=== PATIENT | female | born 1970 | race African-American/Black ===

== ENCOUNTER 2023-05-05 09:49 | Emergency (ER) | payer SELFPAY ==
[2023-05-05 09:57] VITALS: BMI 24.9
[2023-05-05] MEDS ORDERED: SODIUM CHLORIDE 1,000 ML IV STA (10:46)
[2023-05-05] MEDS ORDERED: ACETAMINOPHEN 1000 MG/100 ML BAG IVPB ONE (10:46)
[2023-05-05] MEDS ORDERED: ONDANSETRON 4 MG/2 ML VIAL IVPUSH ONE (10:46)
[2023-05-05] MEDS ORDERED: ACETAMINOPHEN INJECTION 100 ML IVPB ONE (10:53)
[2023-05-05] MEDS ORDERED: ONDANSETRON 4 MG/2 ML VIAL ONE (10:53)
[2023-05-05 11:28] LABS: URINE APPEARANCE CLEAR; URINE BILIRUBIN NEGATIVE (NEGATIVE); URINE COLOR YELLOW; URINE GLUCOSE (UA) NEGATIVE (NEGATIVE); URINE KETONE NEGATIVE (NEGATIVE); URINE LEUK ESTERASE NEGATIVE (NEGATIVE); URINE NITRITE NEGATIVE (NEGATIVE); URINE PROTEIN NEGATIVE (NEGATIVE); URINE UROBILINOGEN 0.2 mg/dL (0.2-1.0)
[2023-05-05 11:31] LABS: BASO % 0.6 % (0-2.0); EOS % 0.1 % (0-4.5); HEMATOCRIT 37.9 % (32.4-45.2); HEMOGLOBIN 12.3 GM/dL (10.7-15.3); LYMPH % 14.1 % (8-40); MCH 26.7 pg (25.7-33.7); MCHC 32.3 g/dl (32.0-36.0); MEAN CELL VOLUME 82.6 fl (80-96); MEAN PLT VOLUME 8.8 fl (7.5-11.1); MONO % 2.4 % (3.8-10.2); NEUT % 82.8 % (42.8-82.8); PLATELET COUNT 243 10^3/uL (134-434); RBC 4.59 M/mm3 (3.60-5.2); WHITE BLOOD COUNT 6.3 K/mm3 (4.0-10.0)
[2023-05-05 11:33] LABS: HCG,QUALITATIVE URINE Negative
[2023-05-05 11:35] LABS: INR 1.03 (0.83-1.09); PROTHROMBIN TIME (PATIENT) 11.9 SEC (9.7-13.0)
[2023-05-05 11:36] LABS: ACTIVATED PTT 22.3 SECONDS (25.2-36.5)
[2023-05-05 11:41] LABS: POTASSIUM 4.4 mmol/L (3.5-5.1)
[2023-05-05 11:43] LABS: CALCIUM 9.1 mg/dL (8.5-10.1)
[2023-05-05 11:44] LABS: BLOOD UREA NITROGEN 12.8 mg/dL (7-18)
[2023-05-05 11:46] LABS: ALBUMIN 4.1 g/dl (3.4-5.0)
[2023-05-05 11:47] LABS: CREATININE 0.9 mg/dL (0.55-1.3)
[2023-05-05 11:48] LABS: BILIRUBIN,TOTAL 0.3 mg/dL (0.2-1); TOT PROT 7.6 g/dl (6.4-8.2)
[2023-05-05 14:49] VITALS: BP 130/78; PULSE 74; RESP 16
== END 2023-05-05 14:50 | disposition home or self-care (01) ==
LOC: JER 09:49
PROC: 3E033NZ Introduction of Analgesics, Hypnotics, Sedatives into Peripheral Vein, Percutaneous Approach (ICD-10-PCS; principal; 2023-05-05)
PROC: 3E033GC Introduction of Other Therapeutic Substance into Peripheral Vein, Percutaneous Approach (ICD-10-PCS; 2023-05-05)
PROC: 3E0337Z Introduction of Electrolytic and Water Balance Substance into Peripheral Vein, Percutaneous Approach (ICD-10-PCS; 2023-05-05)
DX: R10.31 Right lower quadrant pain (principal); R11.10 Vomiting, unspecified; N28.1 Cyst of kidney, acquired; M54.50 Low back pain, unspecified; M79.651 Pain in right thigh
CPT/HCPCS: 36415; 74177-TC; 80053; 81003; 84703; 85025; 85610; 85730; 86850; 86900; 86901; 87086; 99285-25